=== PATIENT | female | born 1955 | race Caucasian/White ===

== ENCOUNTER 2019-03-08 09:15 | Day surgery (SDC) | payer BC, MEDICARE ==
[~2019-03-08 09:15] MED LIST: KETOROLAC TROMETHAMINE 0.45% 4 DROP/0.4 ML DROPERETTE OD PRN
[2019-03-08] MEDS ORDERED: FENTANYL CITRATE INJ/PF 100 MCG/2 ML AMPUL ONE (09:31)
[2019-03-08] MEDS ORDERED: MIDAZOLAM 2 MG/2 ML INJ ONE (09:31)
[2019-03-08] MEDS: TROPICAMIDE 1% OPH SOLN 3 ML OD PRN ×3 (10:14→10:29)
[2019-03-08] MEDS: TETRACAINE HCL 0.5% OPH SOLN 4 ML OD PRN ×3 (10:14→10:37)
[2019-03-08] MEDS: BESIFLOXACIN HCL 0.6% OPH SUSP 5 ML BOTTLE OD PRN ×4 (10:15→10:55)
[2019-03-08] MEDS: CYCLOPENTOLATE 0.2%/PHENYLEPHRINE 1% OPH SOLN 2 ML OD PRN ×3 (10:15→10:29)
[2019-03-08] MEDS: LIDOCAINE 1%/PHENYLEPHRINE 1.5% 1 ML VIAL ONE ×2 (10:44)
[2019-03-08] MEDS: EPINEPHRINE INJ/PF 1 MG/1 ML AMPULE ONE ×2 (10:44)
[2019-03-08] MEDS: CHONDR SU A NA/HYALUR INTRAOC KIT (SURGICARE) ONE ×2 (10:44)
[2019-03-08] MEDS: DORZOLAMIDE HCL 2%/TIMOLOL MALEAT 0.5% OPH SOLN 10 ML OD PRN ×2 (10:55)
--- NOTE | 2019-03-08 20:45 | [facility] DISCHARGE SUMMARY E ---
[facility] Discharge Summary NAME: KELTON KELLY AGE: 63Y ADMITTED: 03/08/2019 DISCHARGED: This is a 63-year-old female who underwent cataract extraction of the right eye. DIAGNOSIS: Cataract right eye. She underwent surgery because she was having difficulty with glare from headlights at night, making it difficult to drive. She should be on a regular diet. No bending at the waist and no heavy lifting. She should use her Vigamox, Prolensa, and Durezol at 3:00 p.m. and 8:00 p.m. and sleep with a rigid shield. I will see her for her 1-day postop tomorrow. DICTATING PHYSICIAN: KAYLIE TRIVEDI M.D. 1217M 0 PHY#: [id number] ID: [id number] JOB#: [id number] ACCT: [id number] cc:KAYLIE TRIVEDI M.D. >
--- NOTE | 2019-03-08 20:45 | [facility] OPERATIVE REPORT E ---
[facility] Operative Report NAME: KELTON KELLY AGE: 63Y DATE OF SURGERY: 03/08/2019 ROOM: PREOPERATIVE DIAGNOSIS: CATARACT, RIGHT EYE. POSTOPERATIVE DIAGNOSIS: CATARACT, RIGHT EYE. OPERATION: Cataract extraction with insertion of an IOL of the right eye. SURGEON: KAYLIE TRIVEDI M.D. ANESTHESIA: Topical. PROCEDURE: After obtaining appropriate consent, the patient's right eye was prepped and draped in sterile fashion as well as the surgeon in a sterile manner and cataract surgery was started. First a paracentesis blade was used to make a side-port incision. Viscoelastic was used to inflate the anterior chamber. Next a 2.4 mm incision was made with a 2.4 mm blade, clear corneal temporally. A continuous capsulorrhexis was made using a cystotome and Utrata forceps. Following this hydrodissection was carried out to make the lens fully loose and mobile and it was rotated 90 degrees. Following this, a gqnnfp-eph-behagwg technique was used to phacoemulsify the lens with a CDE of 2.88. The remaining cortex was removed with irrigation/aspiration. Provisc was instilled into the capsular bag to inflate the bag. A ZCB00, 22.5 diopter lens was placed. The remaining viscoelastic material was removed with irrigation/aspiration. Following this, the incision was found to be watertight. Besivance was instilled into the eye and a protective shield was placed over the eye. The patient returned to the postoperative recovery in stable condition. DICTATING PHYSICIAN: KAYLIE TRIVEDI M.D. [id number] PHY#: [id number] ID: [id number] JOB#: [id number] ACCT: [id number] cc:KAYLIE TRIVEDI M.D. >
== END 2019-03-08 11:34 | disposition home or self-care (01) ==
LOC: SC 09:15
PROVIDERS: ATTEND Internal Medicine
DX: H25.13 Age-related nuclear cataract, bilateral (principal); G44.89 Other headache syndrome; H16.223 Keratoconjunctivitis sicca, not specified as Sjogren's, bilateral; H52.4 Presbyopia; E11.319 Type 2 diabetes mellitus with unspecified diabetic retinopathy without macular edema; E88.81 Metabolic syndrome and other insulin resistance; J44.9 Chronic obstructive pulmonary disease, unspecified; I10 Essential (primary) hypertension; K21.9 Gastro-esophageal reflux disease without esophagitis; K44.9 Diaphragmatic hernia without obstruction or gangrene; M48.00 Spinal stenosis, site unspecified; Z88.8 Allergy status to other drugs, medicaments and biological substances; Z79.899 Other long term (current) drug therapy; Z88.0 Allergy status to penicillin; Z79.82 Long term (current) use of aspirin
CPT/HCPCS: 66984; V2632; J2250; J3490 ×2; A9270; J0171; J3010; J2370; 142

== ENCOUNTER 2019-04-12 06:59 | Day surgery (SDC) | payer MEDICARE ==
[~2019-04-12 06:59] MED LIST changes: -KETOROLAC TROMETHAMINE 0.45% 4 DROP/0.4 ML DROPERETTE OD PRN; +KETOROLAC TROMETHAMINE 0.45% 4 DROP/0.4 ML DROPERETTE OS PRN
[2019-04-12] MEDS ORDERED: MIDAZOLAM 2 MG/2 ML INJ ONE (07:18)
[2019-04-12] MEDS: CYCLOPENTOLATE 0.2%/PHENYLEPHRINE 1% OPH SOLN 2 ML OS PRN ×3 (07:56→08:16)
[2019-04-12] MEDS: TROPICAMIDE 1% OPH SOLN 3 ML OS PRN ×3 (07:56→08:16)
[2019-04-12] MEDS: BESIFLOXACIN HCL 0.6% OPH SUSP 5 ML BOTTLE OS PRN ×4 (07:56→08:56)
[2019-04-12] MEDS: TETRACAINE HCL 0.5% OPH SOLN 4 ML OS PRN ×3 (07:57→08:31)
[2019-04-12] MEDS: CHONDR SU A NA/HYALUR INTRAOC KIT (SURGICARE) ONE ×2 (08:45)
[2019-04-12] MEDS: EPINEPHRINE INJ/PF 1 MG/1 ML AMPULE ONE ×2 (08:45)
[2019-04-12] MEDS: LIDOCAINE 1%/PHENYLEPHRINE 1.5% 1 ML VIAL ONE ×2 (08:45)
[2019-04-12] MEDS: DORZOLAMIDE HCL 2%/TIMOLOL MALEAT 0.5% OPH SOLN 10 ML OS PRN ×2 (08:56)
--- NOTE | 2019-04-13 11:40 | [facility] OPERATIVE REPORT E ---
[facility] Operative Report NAME: KELTON KELLY AGE: 63Y DATE OF SURGERY: 04/12/2019 ROOM: PREOPERATIVE DIAGNOSIS: CATARACT, LEFT EYE. POSTOPERATIVE DIAGNOSIS: CATARACT, LEFT EYE. OPERATION: Cataract extraction with insertion of an IOL of the left eye. SURGEON: KAYLIE TRIVEDI M.D. ANESTHESIA: Topical. PROCEDURE: After obtaining appropriate consent, the patient's left eye was prepped and draped in sterile fashion as well as the surgeon in a sterile manner and cataract surgery was started. First a paracentesis blade was used to make a side-port incision. Viscoelastic was used to inflate the anterior chamber. Next a 2.4 mm incision was made with a 2.4 mm blade, clear corneal temporally. A continuous capsulorrhexis was made using a cystotome and Utrata forceps. Following this hydrodissection was carried out to make the lens fully loose and mobile and it was rotated 90 degrees. Following this, a yokfpk-vxp-ijjvynl technique was used to phacoemulsify the lens with a CDE of 3.93. The remaining cortex was removed with irrigation/aspiration. Provisc was instilled into the capsular bag to inflate the bag. A ZCB00, 23.5 diopter lens was placed. The remaining viscoelastic material was removed with irrigation/aspiration. Following this, the incision was found to be watertight. Besivance was instilled into the eye and a protective shield was placed over the eye. The patient returned to the postoperative recovery in stable condition. DICTATING PHYSICIAN: KAYLIE TRIVEDI M.D. 1209M 1133 PHY#: [id number] ID: [id number] JOB#: [id number] ACCT: [id number] cc:KAYLIE TRIVEDI M.D. >
--- NOTE | 2019-04-13 11:40 | [facility] DISCHARGE SUMMARY E ---
[facility] Discharge Summary NAME: KELTON KELLY AGE: 63Y ADMITTED: 04/12/2019 DISCHARGED: 04/12/2019 DIAGNOSIS: Cataract, left eye. SUMMARY: This is a 63-year-old female who underwent cataract extraction, left eye. She underwent surgery because she was having difficulty seeing words on the television. DISCHARGE INSTRUCTIONS: She should be on a regular diet, no bending at her waist, and no heavy lifting. She should use her moxifloxacin, Prolensa, and Durezol at 3 p.m. and 8 p.m. and sleep with a rigid shield. I will see her for a 1-day postoperative tomorrow. DICTATING PHYSICIAN: KAYLIE TRIVEDI M.D. 1209M [id number] PHY#: [id number] ID: [id number] JOB#: [id number] ACCT: [id number] cc:KAYLIE TRIVEDI M.D. >
== END 2019-04-12 09:35 | disposition home or self-care (01) ==
LOC: SC 06:59
PROVIDERS: ATTEND Internal Medicine
DX: H25.12 Age-related nuclear cataract, left eye (principal); Z96.1 Presence of intraocular lens; I25.10 Atherosclerotic heart disease of native coronary artery without angina pectoris; I10 Essential (primary) hypertension; E07.9 Disorder of thyroid, unspecified; Z79.899 Other long term (current) drug therapy; Z88.0 Allergy status to penicillin; K76.0 Fatty (change of) liver, not elsewhere classified
CPT/HCPCS: 66984; J2250; J3490 ×2; A9270; J0171; J2370; 142; V2632